=== PATIENT | female | born 1985 | race Caucasian/White ===

== ENCOUNTER 2019-01-21 17:35 | Emergency (ER) | payer BC ==
[~2019-01-21] VITALS: Ht 162.6 cm; Wt 61.4 kg
[2019-01-21 17:40] VITALS: BP 127/86; TEMP 98
[2019-01-21 18:11] VITALS: PULSE 64
== END 2019-01-21 18:11 | disposition home or self-care (01) ==
LOC: COL.ER 17:35
DX: S01.512A Laceration without foreign body of oral cavity, initial encounter (principal); W22.8XXA Striking against or struck by other objects, initial encounter